=== PATIENT | male | born 1970 | race African-American/Black ===

== ENCOUNTER 2019-07-28 03:24 | Emergency (ER) | payer SELFPAY ==
[~2019-07-28] VITALS: Ht 180.3 cm; Wt 79.4 kg
--- NOTE | 2019-07-28 03:35 | NUR ---
ED Nurse Note: PT WALKED IN TO ED FROM HOME C/O LEFT TESTICULAR PAIN X2DAYS. VSS, NAD, AMBULATORY, AAOX4
[2019-07-28] MEDS ORDERED: Azithromycin 250mg tab ORAL ONE (03:45)
[2019-07-28] MEDS ORDERED: Lidocaine 1% MPF 10mg/ml 5ml INJ ONE (03:45)
[2019-07-28 03:48] VITALS: BP 155/98
--- NOTE | 2019-07-28 03:49 | Emergency Room Report ---
History of Present Illness General Chief Complaint: Male Urogenital Problems Source: Patient Present Illness HPI This is a 48-year-old male with no past medical history. He presents with chief complaint of testicular pain and swelling. Onset for last 2 days. Localized to the left side. Is swollen and painful. Worse with movement. Better with rest. He is sexually active with one partner. Unprotected sex. He said he has a slight clearish reddish discharge. No fever chills. No nausea no vomiting. No abdominal pain or swelling. Pain is 7 out of 10. Never had this problem before. No history of STD. Allergies: Coded Allergies: No Known Allergies (Unverified , 07/28/19) COVID-19 Screening Contact w/high risk pt: No Recent Travel to affected area: No Experienced COVID-19 symptoms?: No Patient History Past Medical History: see triage record, old chart reviewed Past Surgical History: none Pertinent Family History: none Social History: Denies: smoking Immunizations: other Reviewed Nursing Documentation: PMH: Agreed; PSxH: Agreed Nursing Documentation-PMH Past Medical History: No Stated History Review of Systems Eye: Denies: eye pain, blurred vision ENT: Denies: ear pain, nose congestion, throat swelling Respiratory: Denies: cough, shortness of breath Cardiovascular: Denies: chest pain, palpitations Gastrointestinal: Denies: abdominal pain, diarrhea, nausea, vomiting Genitourinary: Reports: discharge Musculoskeletal: Denies: back pain, joint pain Skin: Denies: rash Neurological: Denies: headache, numbness Endocrine: Denies: increased thirst, increased urine Hematologic/Lymphatic: Denies: easy bruising All Other Systems: negative except mentioned in HPI Physical Exam Vital Signs Date Time Temp Pulse Resp B/P (MAP) Pulse Ox O2 Delivery O2 Flow Rate FiO2 07/28/19 03:32 98.4 83 16 155/98 (117) 98 Room Air Vitals with high blood pressure Sp02 EP Interpretation: reviewed, normal General Appearance: well appearing, no apparent distress, alert Head: normocephalic, atraumatic Eyes: bilateral eye PERRL, bilateral eye EOMI ENT: hearing grossly normal, normal pharynx Neck: full range of motion, supple, no meningismus Respiratory: chest non-tender, lungs clear, normal breath sounds Cardiovascular #1: regular rate, rhythm, no murmur Gastrointestinal: normal bowel sounds, non tender, no mass, no organomegaly, no bruit, non-distended Genitourinary: other - Patient is uncircumcised. No discharge. Left testicle is swollen and tender. Normal cremasteric reflex. Musculoskeletal: back normal, normal range of motion, gait/station normal Psychiatric: mood/affect normal Medical Decision Making Diagnostic Impression: Primary Impression: Epididymitis, left ER Course Patient presents with left testicular pain and swelling. He does have some bacteria in his urine. We will treat for possible STDs. No evidence of any torsion. Will discharge home. CT/MRI/US Diagnostic Results CT/MRI/US Diagnostic Results : Imaging Test Ordered: Testicular ultrasound Impression Read by head operator. Left epididymitis and hydrocele. No torsion. Last Vital Signs Date Time Temp Pulse Resp B/P (MAP) Pulse Ox O2 Delivery O2 Flow Rate FiO2 07/28/19 03:32 98.4 83 16 155/98 (117) 98 Room Air Status: improved Disposition: HOME, SELF-CARE Condition: Stable Scripts Ibuprofen* (MOTRIN*) 600 Mg Tablet 600 MG ORAL Q6H PRN for For Pain, #30 TAB 0 Refills Prov: Telly Millan MD 07/28/19 Doxycycline Monohydrate* (DOXYCYCLINE MONOHYDRATE*) 100 Mg Capsule 100 MG ORAL Q12H, #14 CAP 0 Refills Prov: Telly Millan MD 07/28/19 Patient Instructions: Epididymitis Additional Instructions: Follow-up with your doctor in 7 days. Return if symptoms worsen. Telly Millan MD Jul 28, 2019 03:49
--- NOTE | 2019-07-28 04:05 | NUR ---
ED Nurse Note: URINE COLLECTED AND SENT TO LAB
[2019-07-28 04:31] LABS: APPEARANCE,URINE CLEAR; BILIRUBIN, URINE NEGATIVE (NEGATIVE); COLOR,URINE PALE YELLOW; GLUCOSE, URINE (UA) NEGATIVE (NEGATIVE); KETONES,URINE NEGATIVE (NEGATIVE); LEUKOCYTE ESTERASE ,URINE 1+ (NEGATIVE); NITRITE,URINE NEGATIVE (NEGATIVE); PH,URINE 6.5 (4.5-8.0); PROTEIN,URINE NEGATIVE (NEGATIVE); UROBILINOGEN,URINE NORMAL MG/DL (0.0-1.0)
--- NOTE | 2019-07-28 04:44 | NUR ---
US tech is here.
[2019-07-28] MEDS ORDERED: DOXYCYCLINE MO100 MG ORAL (05:23)
[2019-07-28] MEDS ORDERED: IBUPROFEN600 M1 ORAL (05:23)
[2019-07-28 05:30] VITALS: BP 143/72
--- NOTE | 2019-07-28 05:30 | NUR ---
ER DISCHARGE NOTE: Patient is cleared to be discharged per ERMD, pt is aox4, on room air, with stable vital signs. pt was given dc and prescription instructions, pt was able to verbalize understanding, pt id band removed without complications. pt is able to ambulate with steady gait. pt took all belongings.
--- NOTE | 2019-07-28 05:45 | Diagnostic Imaging Report ---
EXAM: US Scrotum CLINICAL HISTORY: PAIN TECHNIQUE: Real-time ultrasound of the scrotum with color Doppler and image documentation. COMPARISON: None. FINDINGS: Right testicle: Right testis measures 4.9 x 2.0 x 3.5 cm. No torsion. Left testicle: Left testis measures 4.5 x 2.1 x 3.0 cm. No torsion. Epididymides: The left epididymis is diffusely enlarged with increased vascularity concerning for left epididymitis. Scrotum: There is mild left-sided hydrocele. Normal right epididymis. No right-sided hydrocele. IMPRESSION: Findings suggestive of left-sided epididymitis with mild left hydrocele. Otherwise normal testicular ultrasound with normal symmetrical vascular flow within the bilateral testes.
== END 2019-07-28 05:30 | disposition home or self-care (01) ==
LOC: EMR 04:20
DX: N45.1 Epididymitis (principal); N43.3 Hydrocele, unspecified
CPT/HCPCS: 76870; 81003; 87491; 87590; 96372; 96374; 99284; J0696